=== PATIENT | female | born 1970 | race Caucasian/White ===

== ENCOUNTER 2020-11-26 06:06 | Day surgery (SDC) | payer OTHER ==
[2020-11-26] MEDS ORDERED: Lactated Ringers 1,000 ML IV SCH (06:30)
[2020-11-26] MEDS ORDERED: DIPRIVAN 200 MG/20 ML IV ONE (07:24)
[2020-11-26 08:17] VITALS: O2SAT 100
[2020-11-26 08:48] VITALS: BP 129/82; PULSE 69
--- NOTE | 2020-11-26 13:11 | OP ---
SURGERY DATE/TIME: 11/26/2020 0729 PREOPERATIVE DIAGNOSIS: Screening exam. POSTOPERATIVE DIAGNOSIS: Early mild diverticulosis otherwise normal colon. PROCEDURE: Colonoscopy. SURGEON: Dr. Jarrell. ANESTHESIA: MAC. Medications given by anesthesia department. HISTORY: The patient is a 50-year-old white female presenting now for screening colonoscopy. The patient was appraised of the risks of the procedure including the risk of perforation, phlebitis, untoward reaction to medication, bleeding and missed lesions. The patient verbalized her understanding and desired to have the procedure performed. DESCRIPTION OF PROCEDURE: The patient was given the medications by the anesthesia department. She had continuous pulse oximetry, ECG monitoring, intermittent blood pressure monitoring and tidal CO2 monitoring during the examination. She is placed in the left lateral decubitus position. A digital rectal examination performed and revealed normal anal sphincter tone and no masses. The flexible Olympus pediatric colonoscope was used to intubate the rectum. A view of the colon was developed sequentially to the cecum. Upon insertion and withdrawal, including a retroflex view in the rectum, no mucosal lesions were encountered. The scope was removed from the patient who tolerated the procedure well and was sent back to OP recovery in good condition. The prep was noted to be good.
== END 2020-11-26 08:45 | disposition home or self-care (01) ==
LOC: SDC 06:06
PROVIDERS: ATTEND Family Medicine
DX: Z12.11 Encounter for screening for malignant neoplasm of colon (principal); K57.30 Diverticulosis of large intestine without perforation or abscess without bleeding
CPT/HCPCS: J2704